=== PATIENT | male | born 1955 | race Caucasian/White ===

== ENCOUNTER 2017-08-14 06:52 | Day surgery (SDC) | payer MEDICARE, OTHER ==
[2017-08-14] MEDS ORDERED: Lactated Ringers 1,000 ML IV SCH (07:15)
[2017-08-14] MEDS ORDERED: Midazolam 1 MG/ML 2 ML SDV ONE (08:29)
[2017-08-14] MEDS ORDERED: Propofol 200 MG/20 ML SDV ONE ×2 (08:29→08:50)
[2017-08-14] MEDS ORDERED: fentaNYL 100 MCG/2 ML SDV ONE (08:29)
--- NOTE | 2017-08-14 09:46 | OR ---
DATE OF PROCEDURE: 08/14/2017 PREOPERATIVE DIAGNOSIS: Blood in the stool. POSTOPERATIVE DIAGNOSES: 1. Blood in stool, etiology unknown. 2. Two small colon polyps, 15 and 25 cm from the anal verge. PROCEDURE PERFORMED: Colonoscopy to the cecum with biopsy resection of two small colon polyps, 15 and 25 cm from the anal verge. SURGEON: Liban Smith MD. ANESTHESIA: IV anesthesia with monitored anesthesia care. INDICATION: This is a 62-year-old white male who is referred for a colonoscopy because of blood in his stool. He says his last colonoscopic exam was done 3-1/2 years ago. I counseled him for the procedure including risks and alternatives, and he gave his informed consent to proceed. DESCRIPTION OF PROCEDURE: The patient was placed in the left lateral decubitus position. IV anesthesia was administered by the Anesthesia Service. Time-out was held. A rectal exam was performed, which was unremarkable. The flexible video Olympus colonoscope was introduced through his anus, up his rectum, and out his colon all the way to the cecum. Once the cecum was reached, the scope was slowly withdrawn examining the mucosa throughout. No mucosal abnormalities were noted until we reached 25 cm from the anal verge. Here, a small polyp was seen, which was removed with the biopsy forceps. The scope was withdrawn further with another small polyp seen at 15 cm from the anal verge. This also was removed with the biopsy forceps. The scope was retroflexed in the rectum with the distal rectum appearing unremarkable. The scope was straightened and removed. He tolerated the procedure well. Liban Smith MD /[id number] MTDD
== END 2017-08-14 10:30 | disposition home or self-care (01) ==
LOC: JP.SDS 06:52
PROVIDERS: ATTEND Surgery
DX: K63.5 Polyp of colon (principal); Z88.8 Allergy status to other drugs, medicaments and biological substances
CPT/HCPCS: 45380; 88305; J2250; J2704; J3010; J7120